=== PATIENT | male | born 1995 ===

== ENCOUNTER 2022-03-03 18:17 | Emergency (ER) | payer MEDICAID, OTHER ==
[2022-03-03] MEDS ORDERED: Acetaminophen/HYDROcodone 325-5 MG Tab PO ONE (18:18)
== END 2022-03-03 19:08 | disposition home or self-care (01) ==
LOC: FB.ED 18:17
DX: K08.89 Other specified disorders of teeth and supporting structures (principal)
CPT/HCPCS: 99282; A9270